=== PATIENT | female | born 1990 ===

== ENCOUNTER 2017-07-17 09:03 | Emergency (ER) | payer OTHER ==
[2017-07-17 09:06] VITALS: BMI 35.5
[2017-07-17 09:08] VITALS: TEMP 98.7
--- NOTE | 2017-07-17 10:39 | ED PDOC ---
Lower Extremity Pain/Injury Time Seen by Provider: 07/17/17 09:15 Chief Complaint (Nursing): Lower Extremity Problem/Injury Chief Complaint (Provider): right ankle pain History Per: Patient History/Exam Limitations: no limitations Onset/Duration Of Symptoms: Hrs Current Symptoms Are (Timing): Still Present Additional Complaint(s): 27yo female who is currently 18 weeks , presents to the ED for evaluation of right ankle pain, which started a couple hours prior to arrival after patient twisted her ankle and fell. She reports pain and swelling to lateral aspect of her right ankle. She denies any other injuries, numbness or tingling. No other complaints. - Ankle/Foot Description Of Injury: Fell, Twisted Past Medical History Reviewed: Historical Data, Nursing Documentation, Vital Signs Vital Signs: Last Vital Signs Temp 98.7 F 07/17/17 09:05 Pulse 107 H 07/17/17 09:05 Resp 17 07/17/17 09:05 BP 143/84 07/17/17 09:05 Pulse Ox 97 07/17/17 09:05 - Medical History PMH: No Chronic Diseases - Surgical History Surgical History: No Surg Hx - Family History Family History: States: No Known Family Hx - Immunization History Hx Tetanus Toxoid Vaccination: No Hx Influenza Vaccination: Yes (2014) Hx Pneumococcal Vaccination: No - Home Medications Home Medications: Ambulatory Orders Medication Instructions Recorded Nitrofurantoin Macrocrystals 100 mg PO BID #14 cap 01/12/15 [Macrobid] Ondansetron ODT [Zofran ODT] 1 odt PO BID PRN #6 odt 01/12/15 No Known Home Med 03/07/17 - Allergies Allergies/Adverse Reactions: Allergies Allergy/AdvReac Type Severity Reaction Status Date / Time No Known Allergies Allergy Verified 01/12/15 15:14 Review of Systems ROS Statement: Except As Marked, All Systems Reviewed And Found Negative Musculoskeletal: Positive for: Foot Pain (right ankle) Neurological: Negative for: Numbness, Other (tingling) Physical Exam - Reviewed Nursing Documentation Reviewed: Yes Vital Signs Reviewed: Yes - Physical Exam Appears: Positive for: Non-toxic Head Exam: Positive for: ATRAUMATIC, NORMAL INSPECTION, NORMOCEPHALIC Eye Exam: Positive for: Normal appearance Neck: Positive for: Supple Cardiovascular/Chest: Positive for: Regular Rate, Rhythm Respiratory: Positive for: Normal Breath Sounds. Negative for: Respiratory Distress Extremity: Positive for: Tenderness (tenderness right lateral ankle), Capillary Refill (< 2 seconds), Swelling (swelling right lateral ankle). Negative for: Normal ROM (decreased ROM right ankle due to pain), Deformity Neurologic/Psych: Positive for: Alert, Oriented. Negative for: Motor/Sensory Deficits - ECG O2 Sat by Pulse Oximetry: 97 (RA) Pulse Ox Interpretation: Normal Medical Decision Making Medical Decision Making: Time: 953 Impression: Right ankle injury rule out fracture Plan: -- XR Right ankle; patient informed of risks and benefits of an XR study, informed of low risk of scattering as well as low risk to fetus. Patient expresses understanding and is agreeable for an XR. -- Tylenol 650 mg PO Reassess Time: 1135 XR reviewed and shows questionable avulsion fracture of lateral malleolus. Time: 1143 Podiatry resident aware of case. Time: 1351 Podiatry resident placed posterior splint on patient. Patient to follow up with podiatry in 1 week. Stable for discharge home. ptgiven crutches Scribe Attestation: Documented by Alicia Reina acting as a scribe for Royce Obrien MD. Provider Attestation: All medical record entries made by the Scribe were at my direction and personally dictated by me. I have reviewed the chart and agree that the record accurately reflects my personal performance of the history, physical exam, medical decision making, and the department course for this patient. I have also personally directed, reviewed, and agree with the discharge instructions and disposition. Disposition - Clinical Impression Clinical Impression: Avulsion fracture of ankle - Patient ED Disposition Is Patient to be Admitted: No Counseled Patient/Family Regarding: Studies Performed, Diagnosis, Need For Followup - Disposition Referrals: [facility] [Outside] Podiatry Clinic [Outside] Disposition: Routine/Home Disposition Time: 11:00 Condition: IMPROVED Additional Instructions: follow up wtih Dr hebert in podiatry clinic in one week rest, elevation, non weight bearing with crutches Instructions: Crutch Instructions (ED), Avulsion Fracture (ED), Non Weight Bearing Activity (ED) Forms: [employer] (Turkish), [facility] ED School/Work Excuse
--- NOTE | 2017-07-17 11:29 | RAD ---
PROCEDURE: Right Ankle Radiographs. HISTORY: ankle pain sp fall COMPARISON: None FINDINGS: BONES: There is likely an avulsion fracture nondisplaced at the tip of the lateral malleolus with prominent overlying soft tissue edema appreciated. Remainder of the osseous elements of the ankle are intact without additional fracture appreciated no subluxation or dislocation. Limited edema seen anteriorly as well as posteriorly. JOINTS: Normal. No osteoarthritis. Ankle mortise maintained. Talar dome intact SOFT TISSUES: See above. OTHER FINDINGS: None. IMPRESSION: Likely nondisplaced avulsion fracture at the tip of the lateral malleolus with prominent overlying soft tissue edema related. No dislocation/ subluxation. Findings discussed with Dr. Obrien 07/17/2017 11:25 a.m. with written down and read back verification.
[2017-07-17 14:16] VITALS: BP 128/69; PULSE 72; RESP 18
--- NOTE | 2017-07-17 17:36 | CP.PCM.CON ---
History of Present Illness - History of Present Illness History of Present Illness: 27 y.o female 18 weeks with no PMH was seen in the ED for right ankle pain. She reports on 07/16/17 at 11pm as she was walking, she tripped and twisted her ankle. She reports that during that time she did not have much pain and swelling. When she woke up this morning, there was increase swelling and pain to the right ankle. She reports her pain 5/10 today with pain medication. Describes the pain as a throbbing pain localized to the right ankle. She denies n/v/sob/cp/chills or f PMH: none PSH: none SH: denies smoking, drinking, or illicit drug use Meds: medication ALL: NKDA FH: hypertension, high cholesterol Past Patient History - Past Social History Smoking Status: Never Smoked - PSYCHIATRIC Hx Substance Use: No - SURGICAL HISTORY Hx Surgeries: No Meds Allergies/Adverse Reactions: Allergies Allergy/AdvReac Type Severity Reaction Status Date / Time No Known Allergies Allergy Verified 01/12/15 15:14 Physical Exam - Constitutional Appears: Well, Non-toxic, No Acute Distress - Extremities Exam Additional comments: Right lower extremity focused exam: Vasc: DP and PT 2/4 bilaterally, CFT <3 seconds x10 digits, temperature WNL, digital hair present, localized edema to the right ankle Ortho: moderate pain with palpation to the lateral malleolus, MM is 4/5 in all four compartments in dorsiflexion, plantarflexion, inversion, and eversion with guarding, mild pain with ROM, pt able to wiggle toes Neuro: gross and protective sensation intact Derm: no open lesions, no ecchymosis noted to the lower extremity, skin color WNL - Neurological Exam Neurological exam: Alert, Oriented x3 - Psychiatric Exam Psychiatric exam: Normal Affect, Normal Mood Results - Vital Signs Recent Vital Signs: Last Vital Signs Temp 98.7 F 07/17/17 09:05 Pulse 72 07/17/17 14:15 Resp 18 07/17/17 14:15 BP 128/69 07/17/17 14:15 Pulse Ox 98 07/17/17 14:15 Assessment & Plan - Assessment and Plan (Free Text) Assessment: 27 y.o female 18 weeks with no PMH was seen in the ED for right nondisplaced avulsion fibular fracture Plan: Patient was seen and examined in the ED Charts, labs, vitals reviewed Discussed the plan in detail with attending Dr. Lange Posterior splint applied Pt to NWB in posterior splint with crutches RICE protocol Nondisplaced fibular fracture will be treated conservatively at this time. No surgical intervention need at this time. Will f/u in clinic in 1 week
[2017-07-18 08:09] VITALS: O2SAT 97
== END 2017-07-17 14:17 | disposition home or self-care (01) ==
LOC: H.ER 09:03
DX: S92.151A Displaced avulsion fracture (chip fracture) of right talus, initial encounter for closed fracture (principal); X50.9XXA Other and unspecified overexertion or strenuous movements or postures, initial encounter; Y92.89 Other specified places as the place of occurrence of the external cause

== ENCOUNTER 2017-11-20 09:46 | Emergency (ER) | payer OTHER ==
[2017-11-20 10:03] VITALS: BMI 38.4
[2017-11-20] MEDS: Lactated Ringer's 1,000 ML IV SCH ×2 (10:32→12:06)
[2017-11-20 10:55] LABS: SQUAMOUS EPITHIAL 12 /hpf (0-5); URINE BACTERIA RARE (<OCC); URINE BILIRUBIN NEGATIVE (NEGATIVE); URINE BLOOD NEGATIVE (NEGATIVE); URINE CLARITY CLOUDY (Clear); URINE GLUCOSE (UA) NEG (Normal); URINE LEUKOCYTE ESTERASE MOD Leu/uL (Negative); URINE NITRATE NEGATIVE (NEGATIVE); URINE PROTEIN 100 mg/dL (NEGATIVE); URINE UROBILINOGEN 0.2-1.0 mg/dL (0.2-1.0)
[2017-11-20 10:56] LABS: URINE COLOR YELLOW (YELLOW)
[2017-11-20 11:04] LABS: BASO # 0.1 K/uL (0.0-0.2); BASO % 0.9 % (0.0-2.0); HEMOGLOBIN 12.2 g/dL (12.0-16.0); LYMPH # 0.5 K/uL (1.0-4.3); LYMPH % 5.2 % (20.0-40.0); MEAN CORPUSCULAR HEMOGLOBIN 27.1 pg (27.0-31.0); MEAN CORPUSCULAR HGB CONC 32.7 g/dL (33.0-37.0); MEAN PLATELET VOLUME 11.3 fl (7.2-11.7); MONO # 0.5 K/uL (0.0-0.8); MONO % 4.5 % (0.0-10.0); NEUT # 9.1 K/uL (1.8-7.0); NEUT % 89.4 % (50.0-75.0); PLATELET COUNT 157 K/uL (130-400); RED CELL DISTRIBUTION WIDTH 15.7 % (11.5-14.5); WHITE BLOOD COUNT 10.2 K/uL (4.8-10.8)
[2017-11-20 11:35] LABS: ALB/GLOB RATIO 0.8 (1.0-2.1); ALBUMIN 3.5 g/dL (3.5-5.0); ALT/SGPT 24 U/L (9-52); AMYLASE 92 U/L (30-110); AST/SGOT 16 U/L (14-36); BLOOD UREA NITROGEN 7 mg/dl (7-17); CALCIUM 9.2 mg/dL (8.4-10.2); GFR AFRICAN-AMERICAN > 60; GFR NON-AFRICAN AMERICAN > 60; LIPASE 55 U/L (23-300)
[2017-11-20 14:00] LABS: ANISOCYTOSIS SLIGHT; LYMPHOCYTE 5 % (20-50); MONOCYTE 4 % (0-10); NEUTROPHIL 91 % (42-75); PLATELET ESTIMATE NORMAL (NORMAL); TOTAL CELLS COUNTED 100
[2017-11-20 14:01] LABS: TOXIC GRANULATION PRESENT
--- NOTE | 2017-11-20 17:59 | OBHP ---
Datetime: 11/20/2017 10:05 Admit Comment, IP Provider: 27 yo at 36w+6, with RANDALL 12/12/17 presented to [facility] with complain ts of weakness, nausea, vomiting since midnight. States she vomited many times, unable to quantify, l ast time around 9 am. Vomit is nonbloody and nonbilious. States she was nauseous at the time but is n ot presently. Reports good movement, denies vaginal bleeding, loss of fluid, contractions. care with Dr. Mcdaniel Obhx: 1 prior NVD at full term in 2014 Med hx: none, denies Surg hx: none Fam hx: DM2, HTN Social hx: denies tobacco alcohol drug use Meds: pnv, iron Allergies: nkda ROS: denies headache, chest pain, shortness of breath, nausea, burning with urination. Endorses vo miting and weakness. PE: Afebrile, tachycardic Gen: alert, no visible acute distress CV: S1S2 Resp: clear breath sounds bilaterally Abd: gravid Ext: no deformity or significant edema Assessment: 27 yo with IUP at 36w+6 gestational age, no signs of labor, with GI upset. Plan: 1L bolus LR, CBC, CMP, UA, amylase, lipase Pt discussed w/ OB motion picture film examiner Dr. Dailey, and RN discussed pt w/ Dr. Mcdaniel by phone. -[id number] Attending Note: Pt reports feeling better. The labs results are unremarkable. Plan: D/c Home. F/U with Dr Mcdaniel. EGA AdmitDate IP: 36.6 IP Chief Complaint: Illness
[2017-11-20 19:05] VITALS: BP 133/78; PULSE 113; RESP 18; TEMP 98.9
== END 2017-11-20 13:25 | disposition home or self-care (01) ==
LOC: H.EROB2 09:46 → H.EROB 10:13 → H.EROB2 13:25
DX: O46.93 Antepartum hemorrhage, unspecified, third trimester (principal); Z3A.36 36 weeks gestation of pregnancy
CPT/HCPCS: 80053; 81003; 82150; 83690; 85025; 99283; J7120

== ENCOUNTER 2017-12-11 09:14 | Inpatient (IN) | payer OTHER ==
[2017-12-11 09:55] VITALS: BMI 37.5
[2017-12-11 12:01] LABS: BASO % 0.1 % (0.0-2.0); EOS % 0.4 % (0.0-4.0); LYMPH # 1.8 K/uL (1.0-4.3); LYMPH % 19.1 % (20.0-40.0); MEAN CORPUSCULAR HEMOGLOBIN 27.2 pg (27.0-31.0); MEAN CORPUSCULAR HGB CONC 33.2 g/dL (33.0-37.0); MEAN PLATELET VOLUME 12.9 fl (7.2-11.7); MONO # 0.7 K/uL (0.0-0.8); MONO % 7.5 % (0.0-10.0); NEUT # 6.8 K/uL (1.8-7.0); NEUT % 72.9 % (50.0-75.0); RBC 4.03 Mil/uL (3.80-5.20); RED CELL DISTRIBUTION WIDTH 15.7 % (11.5-14.5); WHITE BLOOD COUNT 9.4 K/uL (4.8-10.8)
[2017-12-11 12:29] LABS: ALB/GLOB RATIO 0.7 (1.0-2.1); ALBUMIN 3.1 g/dL (3.5-5.0); ALT/SGPT 28 U/L (9-52); AST/SGOT 18 U/L (14-36); BLOOD UREA NITROGEN 8 mg/dl (7-17); GFR AFRICAN-AMERICAN > 60; GFR NON-AFRICAN AMERICAN > 60
[2017-12-11 13:05] LABS: RENAL EPITHELIAL < 1 /hpf (0-3); SQUAMOUS EPITHIAL 16 /hpf (0-5); URINE BACTERIA RARE (<OCC); URINE BILIRUBIN NEGATIVE (NEGATIVE); URINE BLOOD NEGATIVE (NEGATIVE); URINE CLARITY CLOUDY (Clear); URINE COLOR YELLOW (YELLOW); URINE GLUCOSE (UA) NEG (Normal); URINE LEUKOCYTE ESTERASE LARGE Leu/uL (Negative); URINE PROTEIN NEGATIVE (NEGATIVE); URINE UROBILINOGEN 0.2-1.0 mg/dL (0.2-1.0)
--- NOTE | 2017-12-11 16:31 | OBHP ---
Datetime: 12/11/2017 11:19 IP Adm Impression: Term, intrauterine IP Admit Plan: Admit to unit Abdomen - PN: Normal Lungs - PN: Normal Heart - PN: Normal Neurologic - PN: Normal HEENT - PN: Normal General - PN: Normal FHR - Baseline A Provider: 140s Membranes, Provider: Intact Pool Provider: Negative EGA AdmitDate IP: 39.6 Vital Signs Provider: Reviewed IP Chief Complaint: Suspected ruptured membranes NICHD Variability Prov Fetus A: Moderate 6-25bpm NICHD Accel Fetus A IP Provider: [id number] FHR Category Provider Fetus A: Category I NICHD Decel Fetus A IP Provider: None Dilatation, Provider: 1 Effacement, Provider: 30 Station, Provider: -3 Genitourinary Exam: Normal Datetime: 12/11/2017 10:04 Admit Comment, IP Provider: 27 yo at 39.6 weeks GA, EDC 12/12/17 based on LMP, presents to OB ED with c/o leakage of fluids since 6:30 am this morning. Pt reports intermittent CTX q30 min. Denies vaginal bleeding. Reports +FM. Pt reports she has elevated BP throughout this preganany but not on B P meds. Denies headache, blurry vision, chest pain, epigastric pain or dyspnea. Has B/L lower extermi ties edema. Pt is GBS negative. PNC: Dr. Mcdaniel PNL: O+, ab neg, rpr neg, hiv neg, gbs neg, rubella equivocal. pastobhx: x1 in 2014, full term, no complication medhx: elevated BP during this , anemia surghx: denies family hx: DMII, HTN socialhx: denies smoking cigarettes, drinking EtOH or drug uses meds: PNV, iron pills allergies: NKDA Assessment: 27 yo IUP@39.6 weeks GA not in active labor Gestational hypertension Plan: Cotinuous heart tracing BP check q15 min (pt is asymptomatic) labs to r/o preecclampsia reevalute Pt seen and examined with On-Call OB Hospitalist Dr. Cj Zaidi,pgy-1 obh pt seen _ exmined by me. Back - PN: Normal Comments, ACOG Physical Exam: lower extremities: mild B/L swelling, 1+ pedal edema. no calf tenderne ss. SSE: no pooling seen. SVE:
--- NOTE | 2017-12-11 17:45 | OBADHP ---
Datetime: 12/11/2017 11:19 Admit Comment, IP Provider: 27 yo at 39.6 weeks GA, EDC 12/12/17 based on LMP, presents to OB ED with c/o leakage of fluids since 6:30 am this morning. Pt reports intermittent CTX q30 min. Denies vaginal bleeding. Reports +FM. Pt reports she has elevated BP throughout this preganany but not on B P meds. Denies headache, blurry vision, chest pain, epigastric pain or dyspnea. Has B/L lower extermi ties edema. Pt is GBS negative. PNC: Dr. Mcdaniel PNL: O+, ab neg, rpr neg, hiv neg, gbs neg, rubella equivocal. pastobhx: x1 in 2014, full term, no complication medhx: elevated BP during this , anemia surghx: denies family hx: DMII, HTN socialhx: denies smoking cigarettes, drinking EtOH or drug uses meds: PNV, iron pills allergies: NKDA Assessment: 27 yo IUP@39.6 weeks GA not in active labor Gestational hypertension Plan: admit to L_D as per Dr. Mcdaniel Cotinuous heart tracing BP check q15 min (pt is asymptomatic) labs to r/o preecclampsia Sultan Zaidi,pgy-1 ob attending addendum per dr mcdaniel request- cervidel for induction placed @ 17: 20 1cm/high/thick Abdomen - PN: Normal Lungs - PN: Normal Heart - PN: Normal Neurologic - PN: Normal HEENT - PN: Normal General - PN: Normal FHR - Baseline A Provider: 140s Membranes, Provider: Intact Pool Provider: Negative Vital Signs Provider: Reviewed IP Chief Complaint: Suspected ruptured membranes NICHD Variability Prov Fetus A: Moderate 6-25bpm NICHD Accel Fetus A IP Provider: [id number] FHR Category Provider Fetus A: Category I NICHD Decel Fetus A IP Provider: None Dilatation, Provider: 1 Effacement, Provider: 30 Station, Provider: -3 Genitourinary Exam: Normal EGA AdmitDate IP: 39.6 IP Adm Impression: Term, intrauterine IP Admit Plan: Admit to unit (Annotations: Data stored by CPN on behalf of user) Datetime: 12/11/2017 10:04 Back - PN: Normal Comments, ACOG Physical Exam: lower extremities: mild B/L swelling, 1+ pedal edema. no calf tenderne ss. SSE: no pooling seen. SVE: 3
[2017-12-11] MEDS ORDERED: Nalbuphine 20 mg/ml Inj (1 ml) IVP PRN (20:07)
[2017-12-12] MEDS: Lactated Ringer's 1,000 ML IV SCH ×2 (04:00→04:30)
[2017-12-12] MEDS ORDERED: Lactated Ringer's 1,000 ML IV SCH (04:15)
[2017-12-12] MEDS ORDERED: Fentanyl/Bupivacaine HCl 125 ML EPI ONE (04:25)
[2017-12-12] MEDS ORDERED: Oxytocin 30 units/LR 500ML 30 U/500 ML BAG IV ONE (05:26)
[2017-12-12] MEDS ORDERED: Lidocaine 1% Inj (20ml) ONE (05:30)
[2017-12-12] MEDS ORDERED: Oxycodone/Acetaminophen 5/325 mg Tab PO PRN (07:05)
[2017-12-12] MEDS ORDERED: Multivitamin With Minerals Tab PO SCH (09:00)
--- NOTE | 2017-12-12 10:59 | OBPPN ---
Datetime: 12/12/2017 10:55 PP Progress Note Prov: Notified for elevated BP ..will monitor BP - cardiology consults... will consider MgSO4...spoke to tp. She understands. No PRICE; no visual dist at this time Datetime: 12/11/2017 09:55 PP Pain Prov: Within normal limits PP Nausea Prov: Denies PP Flatus Prov: Yes PP BM Prov: No PP Breasts Prov: Normal PP Heart Prov: Normal PP Lungs Prov: Normal PP Abdomen/Uterus Prov: Normal PP Lochia Prov: Normal PP Extremities Prov: Normal PP C/S Incision Prov: Normal PP Progress Prov: Normal PP Plan Prov: Continue present management; consult IP PP Procedures: None Vital Signs Provider PP: Reviewed
[2017-12-12] MEDS ORDERED: Magnesium Sulfate 4 gm/100 ml 4 GM/100 ML BAG IV ONE (12:16)
[2017-12-12] MEDS ORDERED: Magnesium Sul 40GM/1L SW 40 GM/1,000 ML ML IV ONE (12:16)
--- NOTE | 2017-12-12 12:42 | OBPPN ---
Datetime: 12/12/2017 12:30 PP Progress Note Prov: Notifeid BP still elveated...start MgSO4 / Dr Johnson contacted
--- NOTE | 2017-12-12 14:22 | CP.PCM.CON ---
History of Present Illness - History of Present Illness History of Present Illness: This 27-year-old female, had rare blood pressure readings during her last 4 months of when abnormal blood pressures where recorded. The patient never needed antihypertensives medications. On couple of occasions urine did show presence of all be main but otherwise mostly the urinalysis was free of proteinuria. Prior to the the patient did not have abnormal blood pressure readings are was never treated for hypertension. She was never a smoker. There is no history of diabetes. Her mother has been a hypertensive for more than 20 years. The patient denies any history of renal disease as a child. She denies salt excess in her diet. This consultation was requested when abnormal blood pressure readings were recorded in the period On physical examination this is a young female who is quite alert awake coherent and comfortable. She was afebrile with a heart rate of 74 bpm and regular and a blood pressure of 156/104 mmHg. Her jugular venous pressure was not elevated and there was minimal pitting edema over both lower activities. The pedal pulses were well felt. Her extremities were warm and the nailbeds were pink. There was no central or peripheral cyanosis. The apex was not palpable. This first and second heart sounds were normal. Her abdomen was soft liver and spleen were not palpable. There were no abdominal bruits. Her lab data was noted. Her BUN/creatinine were normal her urinalysis did not show any proteinuria. Her electro-cardiogram shows sinus rhythm with an essentially normal cardiogram. Impression: related hypertension. The patient plans to breast-feed her child. I started her on labetalol. Past Patient History - Past Social History Smoking Status: Never Smoked - PSYCHIATRIC Hx Substance Use: No - SURGICAL HISTORY Hx Surgeries: No Meds Allergies/Adverse Reactions: Allergies Allergy/AdvReac Type Severity Reaction Status Date / Time No Known Allergies Allergy Verified 01/12/15 15:14 - Medications Medications: Current Medications Docusate Sodium (Colace) 100 mg PO BID [facility] Last Admin: 12/12/17 09:17 Dose: 100 mg Ferrous Sulfate (Feosol) 325 mg PO BID [facility] Last Admin: 12/12/17 09:18 Dose: 325 mg Lactated Ringer's (Lactated Ringer's) 1,000 mls @ 125 mls/hr IV .Q8H [facility] Fentanyl/Bupivacaine HCl (Marcaine 0.125% With Fentanyl 2 Mcg/Ml Premix) 125 mls @ 10 mls/hr EPI .[id number] ONE Stop: 12/12/17 16:54 Last Admin: 12/12/17 04:45 Dose: 10 mls/hr Oxytocin (Pitocin 20 Units In Lr) 1,000 mls @ 125 mls/hr IV .Q8H CHARANJIT PRN Reason: Protocol Last Admin: 12/12/17 07:30 Dose: 125 mls/hr Magnesium Sulfate (Magnesium Sul 40gm/1l Sw) 40 gm in 1,000 mls @ 50 mls/hr IV .Q20H ONE PRN Reason: 2 GM/HR Stop: 12/13/17 08:15 Ibuprofen (Motrin Tab) 600 mg PO Q6H PRN PRN Reason: Pain, Mild (1-3) Last Admin: 12/12/17 09:19 Dose: 600 mg Multivitamins/Minerals (Therapeutic-M Tab) 1 tab PO DAILY [facility] Last Admin: 12/12/17 09:17 Dose: 1 tab Nalbuphine HCl (Nubain) 10 mg IVP ONCE PRN PRN Reason: Pain, Mild (1-3) Last Admin: 12/12/17 01:30 Dose: 10 mg Oxycodone/Acetaminophen (Percocet 5/325 Mg Tab) 1 tab PO Q4 PRN PRN Reason: Pain, moderate (4-7) Stop: 12/15/17 07:06 Sennosides (Senokot Tab) 17.2 mg PO HS [facility] Results - Vital Signs Recent Vital Signs: Last Vital Signs Temp 97.8 F 12/12/17 09:19 Pulse Resp BP Pulse Ox - Labs Result Diagrams: 12/11/17 11:45 12/11/17 11:45 Labs: Laboratory Results - last 24 hr 12/11/17 12/11/17 11:45 11:45 RPR Nonreactive HIV-1 Ab Rapid Screen Non reactive
--- NOTE | 2017-12-13 07:52 | OBPPN ---
Datetime: 12/13/2017 07:41 PP Pain Prov: Within normal limits PP Nausea Prov: Denies PP Flatus Prov: Yes PP BM Prov: No PP Breasts Prov: Normal PP Heart Prov: Normal PP Lungs Prov: Normal PP Abdomen/Uterus Prov: Normal PP Lochia Prov: Normal PP Vulva/Perineum Prov: Normal PP CVA Tenderness Prov: Normal PP Extremities Prov: Normal PP C/S Incision Prov: Not Applicable PP Progress Prov: Normal PP Impression Prov: Normal progression PP Plan Prov: Continue present management PP Progress Note Prov: She feels good this AM. She was started on Labetolol by Dr Dee Dee Johnson. Also was on MgSO4 since yesterday. She has no PRICE/visual disturbances. A: S/P day 1 /elevated BP PLAN discontinue MgSO4 and transfer to OB Case discussed with PMD Vital Signs Provider PP: Reviewed; Within Normal Limits
[2017-12-13 08:26] LABS: BASO % 0.2 % (0.0-2.0); EOS # 0.1 K/uL (0.0-0.7); EOS % 0.6 % (0.0-4.0); HEMOGLOBIN 10.2 g/dL (12.0-16.0); LYMPH # 2.6 K/uL (1.0-4.3); LYMPH % 22.1 % (20.0-40.0); MEAN CELL VOLUME 82.3 fl (81.0-99.0); MEAN CORPUSCULAR HEMOGLOBIN 26.8 pg (27.0-31.0); MEAN CORPUSCULAR HGB CONC 32.6 g/dL (33.0-37.0); MEAN PLATELET VOLUME 11.4 fl (7.2-11.7); MONO # 0.9 K/uL (0.0-0.8); MONO % 7.4 % (0.0-10.0); NEUT # 8.3 K/uL (1.8-7.0); NEUT % 69.7 % (50.0-75.0); RBC 3.8 Mil/uL (3.80-5.20); WHITE BLOOD COUNT 11.9 K/uL (4.8-10.8)
[2017-12-13] MEDS ORDERED: Lactated Ringer's 1,000 ML IV SCH (09:43)
[2017-12-13] MEDS ORDERED: Oxycodone/Acetaminophen 5/325 mg Tab PO PRN (09:43)
--- NOTE | 2017-12-13 11:03 | CARD ---
APPROVED REPORT EKG Measurement Heart [id number] <Conclusion> Normal sinus rhythm Normal ECG
--- NOTE | 2017-12-14 08:06 | OBPPN ---
Datetime: 12/14/2017 08:00 PP Pain Prov: Within normal limits PP Pain Prov comment: Denies SOB, chest or leg pains no headaches PP Nausea Prov: Denies PP Flatus Prov: Yes PP Nausea Prov comment: Denies visual disturbances PP Breasts Prov: Normal PP Lungs Prov: Normal PP Abdomen/Uterus Prov: Abnormal PP Lochia Prov: Normal PP CVA Tenderness Prov: Normal PP Extremities Prov: Normal PP C/S Incision Prov: Not Applicable PP Progress Prov: Normal PP Comments Phys Exam Prov: breast not engorged, NT, Abd soft ND, fundus firm below the umb. NT,, Ex t no calf tenderness no edema DTR 2+ symetrical PP Impression Prov: Induced Hypertension PP Plan Prov: Continue present management PP Impression Other Prov: Pre-eclampsia PP Progress Note Prov: blood pressure still elevated diastolic now 102, pt on Labetalol Will get imp ut from Dr Dee Dee Johnson Continue meds and PP care. IP PP Procedures: None
[2017-12-14] MEDS: Multivitamin With Minerals Tab PO SCH (08:25)
--- NOTE | 2017-12-14 10:47 | CP.PCM.PN ---
Subjective - Date & Time of Evaluation Date of Evaluation: 12/14/17 Time of Evaluation: 10:30 - Subjective Subjective: Feels well HR 108 BPM reg BP 146/94 mm Hg Chest clear, heart sounds pure Will raise Labetalol dose to 400 mg BID Objective - Vital Signs/Intake and Output Vital Signs (last 24 hours): Temp Pulse Resp BP Pulse Ox 98 F 92 H 12/12/17 10:19 12/12/17 10:19 - Medications Medications: Current Medications Docusate Sodium (Colace) 100 mg PO BID [facility] Last Admin: 12/14/17 08:24 Dose: 100 mg Ferrous Sulfate (Feosol) 325 mg PO BID [facility] Last Admin: 12/14/17 08:25 Dose: 325 mg Ibuprofen (Motrin Tab) 600 mg PO Q6H PRN PRN Reason: Pain, Mild (1-3) Labetalol HCl (Trandate) 400 mg PO BID [facility] Labetalol HCl (Trandate) 200 mg PO ONCE ONE Stop: 12/14/17 10:46 Multivitamins/Minerals (Therapeutic-M Tab) 1 tab PO DAILY [facility] Last Admin: 12/14/17 08:25 Dose: 1 tab Oxycodone/Acetaminophen (Percocet 5/325 Mg Tab) 1 tab PO Q4 PRN PRN Reason: Pain, moderate (4-7) Stop: 12/15/17 07:06 Sennosides (Senokot Tab) 17.2 mg PO HS [facility] Last Admin: 12/13/17 22:19 Dose: Not Given - Labs Labs: 12/13/17 08:10 12/11/17 11:45
--- NOTE | 2017-12-15 09:21 | CP.PCM.PN ---
Subjective - Date & Time of Evaluation Date of Evaluation: 12/15/17 Time of Evaluation: 08:50 - Subjective Subjective: Has remained asymptomatic HR 86 BPM, reg BP 156/96 mm Hg No signs of CHF May go home on Labetalol 400 mg [address] and see Dr. Ferris next week in his office. Objective - Vital Signs/Intake and Output Vital Signs (last 24 hours): Temp Pulse Resp BP Pulse Ox 98 F 92 H 12/12/17 10:19 12/12/17 10:19 - Medications Medications: Current Medications Docusate Sodium (Colace) 100 mg PO BID [facility] Last Admin: 12/14/17 17:09 Dose: 100 mg Ferrous Sulfate (Feosol) 325 mg PO BID [facility] Last Admin: 12/14/17 17:09 Dose: 325 mg Ibuprofen (Motrin Tab) 600 mg PO Q6H PRN PRN Reason: Pain, Mild (1-3) Labetalol HCl (Trandate) 400 mg PO TID [facility] Multivitamins/Minerals (Therapeutic-M Tab) 1 tab PO DAILY [facility] Last Admin: 12/14/17 08:25 Dose: 1 tab Sennosides (Senokot Tab) 17.2 mg PO HS [facility] Last Admin: 12/14/17 22:24 Dose: Not Given - Labs Labs: 12/13/17 08:10 12/11/17 11:45
[2017-12-15] MEDS: Multivitamin With Minerals Tab PO SCH (09:50)
--- NOTE | 2017-12-15 13:48 | OBPPN ---
Datetime: 12/15/2017 13:44 PP Pain Prov: Within normal limits PP Pain Prov comment: No SOB, chest or leg pains PP Nausea Prov: denies PP Flatus Prov: Yes PP Nausea Prov comment: no headaches or visual disturbances PP Breasts Prov: Normal PP Lungs Prov: Normal PP Abdomen/Uterus Prov: Abnormal PP Lochia Prov: Normal PP CVA Tenderness Prov: Normal PP Extremities Prov: Normal PP C/S Incision Prov: Not Applicable PP Progress Prov: Normal PP Comments Phys Exam Prov: breast not engorged NT, abd soft ND, fundus firm below the umb NT, ext n o calf tenderness PP Impression Prov: Induced Hypertension PP Plan Prov: Discharge PP Impression Other Prov: pre-eclampsia PP Progress Note Prov: Seen by compliance investigator and rx for Labetalol given and cleared for d/C Appt to s ee Dr Johnson 1 wk and with me in 2 wks
--- NOTE | 2017-12-15 13:51 | OBDCSUM ---
Datetime: 12/15/2017 13:17 Discharged to, Provider: Home Follow up at, Provider: Dr. Jonas Peter Instr Activity: Bedrest; May be up to bathroom; May be up for meals; May Shower Disch Instr Diet: Regular Discharge Instructions, Provider: Specific instructions as noted Discharge Diagnosis, Provider: Term Delivered; Preeclampsia Discharge Time: 12/15/2017 14:00 Follow up in weeks, Provider: 2 wks Disch Referrals: None Contraception discussed, Prov: Yes Disch Activity Restrictions: No exercising; No lifting; No driving; Minimize walking; Minimize stair -climbing; No sexual activity; Nothing in vagina - [place], tampons, douche Discharge Comment, Provider: Rx for Labetalol 400mg tid given by layout inspector and she will follow up with Dr Dee Dee Johnson in 1 wk and in my office in 2 wks Instructions given Discharge Diagnosis Prov Other: PP Hypertension Contraception after Delivery: Undecided Datetime: 11/20/2017 11:47 Disch Instr Activity: Normal activity; May be up to bathroom; May be up for meals; May Shower Disch Activity Restrictions: No lifting; No sexual activity; Nothing in vagina - [place], tampon s, douche
[2017-12-15 20:51] VITALS: BP 148/80; PULSE 106; RESP 20; TEMP 98.5; O2SAT 98
== END 2017-12-15 16:45 | disposition home or self-care (01) | DRG 774 ==
LOC: H.EROB2 09:14 → H.EROB 09:42 → H.L&D 11:32 → H.EROB2 11:40 → H.OB/GYN 12-13 08:06
PROVIDERS: ADMIT Specialist; ATTEND Specialist
PROC: 10E0XZZ Delivery of Products of Conception, External Approach (ICD-10-PCS; principal; 2017-12-11)
PROC: 0HQ9XZZ Repair Perineum Skin, External Approach (ICD-10-PCS; 2017-12-11)
PROC: 4A1HXCZ Monitoring of Products of Conception, Cardiac Rate, External Approach (ICD-10-PCS; 2017-12-11)
DX: O24.92 Unspecified diabetes mellitus in childbirth (principal); E11.9 Type 2 diabetes mellitus without complications; Z37.0 Single live birth; O14.94 Unspecified pre-eclampsia, complicating childbirth; Z3A.39 39 weeks gestation of pregnancy; O70.0 First degree perineal laceration during delivery